=== PATIENT | male | born 1980 | race Caucasian/White ===

== ENCOUNTER 2017-04-22 06:36 | Emergency (ER) | payer OTHER ==
[~2017-04-22] VITALS: Ht 182.9 cm; Wt 78.6 kg
[2017-04-22] MEDS ORDERED: OMEP20 PO (06:41)
[2017-04-22 08:59] VITALS: BP 120/72
[2017-04-22] MEDS ORDERED: IBUPROFEN 800 MG TABLET PO ONE (09:45)
[2017-04-22] MEDS ORDERED: ACETAMINOPHEN 500 MG TABLET PO ONE (09:45)
== END 2017-04-22 09:52 | disposition home or self-care (01) ==
LOC: EMS 06:39
DX: S33.5XXA Sprain of ligaments of lumbar spine, initial encounter (principal); K21.9 Gastro-esophageal reflux disease without esophagitis; V49.9XXA Car occupant (driver) (passenger) injured in unspecified traffic accident, initial encounter; Y93.89 Activity, other specified; Y92.413 State road as the place of occurrence of the external cause; Y99.8 Other external cause status
CPT/HCPCS: 72100; 99284

== ENCOUNTER 2019-07-13 07:33 | Emergency (ER) | payer OTHER ==
[~2019-07-13] VITALS: Ht 182.9 cm; Wt 78.6 kg
[~2019-07-13 07:33] MED LIST: OMEP20 PO
[2019-07-13 07:36] VITALS: BP 132/87
[2019-07-13] MEDS ORDERED: IBUPROFEN 600 MG TABLET PO ONE (08:00)
== END 2019-07-13 09:19 | disposition home or self-care (01) ==
LOC: EMS 07:37
DX: S46.812A Strain of other muscles, fascia and tendons at shoulder and upper arm level, left arm, initial encounter (principal); K21.9 Gastro-esophageal reflux disease without esophagitis; X50.9XXA Other and unspecified overexertion or strenuous movements or postures, initial encounter; Y93.84 Activity, sleeping; Y92.89 Other specified places as the place of occurrence of the external cause; Y99.8 Other external cause status
CPT/HCPCS: 93005